=== PATIENT | female | born 1950 | race Caucasian/White ===

== ENCOUNTER 2024-02-14 16:10 | Inpatient (IN) ==
[2024-02-14] MEDS: ACETAMINOPHEN 1,000 MG/100 ML BAG IV ONE ×2 (17:28→19:51)
[2024-02-14] MEDS: 0.9 % SODIUM CHLORIDE 1,000 ML IV ONE (17:28)
[2024-02-14 17:42] LABS: Basophils # (Auto) 0.07 K/mcL (0.00-0.30); Basophils % (Auto) 0.4 % (0.0-2.0); Eosinophils # (Auto) 0.29 K/mcL (0.00-0.70); Eosinophils % (Auto) 1.9 % (0.0-7.0); Hematocrit 43.8 % (34.1-44.9); Hemoglobin 14.5 g/dL (11.2-15.7); Lymphocytes # (Auto) 2.71 K/mcL (1.50-4.80); Lymphocytes % (Auto) 17.3 % (15.5-49.0); Mean Corpuscular HGB Conc 33.1 g/dL (31.0-36.0); Mean Platelet Volume 10.4 fL (8.8-12.5); Monocytes # (Auto) 1.09 K/mcL (0.10-0.90); Neutrophils % (Auto) 72.7 % (38.0-78.0); Platelet Count 304 K/mcL (140-440); RBC 4.92 M/mcL (3.59-5.38); Red Cell Distribution Width 14.6 % (11.5-14.5); WBC 15.6 K/mcL (4.5-11.0)
[2024-02-14 18:03] LABS: ALT/SGPT 9 U/L (<40); AST/SGOT 25 U/L (<32); Albumin 4.1 gm/dL (3.2-5.2); Albumin/Globulin Ratio 1.5 (1.0-2.3); Alkaline Phosphatase 72 U/L (39-117); Bilirubin,Total 0.5 mg/dL (0.1-1.0); Blood Urea Nitrogen 18 mg/dL (8-23); Calcium 9.3 mg/dL (8.6-10.4); Carbon Dioxide 26 mmol/L (22-30); Chloride 105 mmol/L (96-108); Globulin 2.7 gm/dL (2.2-3.7); Glomerular Filtration Rate 87; Glucose 105 mg/dL (70-105)
[2024-02-14] MEDS: CEFEPIME 2 GM VIAL IV ONE (18:49)
[2024-02-14 19:14] LABS: Appearance,Urine Clear (Clear); Bacteria,Urine 0 /hpf (0); Bilirubin,Urine Negative (Negative); Color,Urine Yellow; Culture Indicated,Urine No; Glucose,Urine (UA) Negative (Negative); Ketones,Urine Negative (Negative); Leukocyte Esterase,Urine Trace /uL (Negative); Nitrate,Urine Negative (Negative); PH,Urine 5.5 (5.0-9.0); Protein,Urine Negative (Negative); Specific Gravity,Urine 1.015 (1.000-1.035); Urine Blood Negative ery/mcL (Negative); Urine RBC 0 /hpf (0-3); Urine Squamous Epithelial Cell 0 /hpf (0-4); Urine WBC 2 /hpf (0-4); Urobilinogen,Urine Normal
[2024-02-14] MEDS: HYDROmorphone 0.5 MG/0.5 ML SYRINGE IV ONE (19:56)
[2024-02-14] MEDS: ONDANSETRON 4 MG/2 ML VIAL IV ONE (19:57)
[2024-02-14] MEDS ORDERED: IOPAMIDOL 100 ML BOTTLE IV ONE (20:51)
[2024-02-14] MEDS: CEFEPIME 2 GM VIAL IV SCH (21:31)
[2024-02-14] MEDS ORDERED: CYCLOBENZAPRINE (PP) 10 MG TABLET PO PRN (21:37)
[2024-02-14] MEDS: 0.9 % SODIUM CHLORIDE 10 ML SYRINGE IV SCH (21:38)
[2024-02-14] MEDS: SENNOSIDES 1 TABLET PO SCH (21:38)
[2024-02-14] MEDS: DOCUSATE SODIUM 100 MG CAPSULE PO SCH (21:38)
[2024-02-14] MEDS: 0.9 % SODIUM CHLORIDE 1,000 ML IV SCH (21:38)
[2024-02-14] MEDS ORDERED: CYCLOBENZAPRINE 10 MG TABLET PO PRN (23:39)
[2024-02-15] MEDS: ONDANSETRON 4 MG/2 ML VIAL IV PRN (00:17)
[2024-02-15] MEDS: CEFEPIME 2 GM VIAL IV SCH (00:29)
[2024-02-15] MEDS: METOCLOPRAMIDE 10 MG/2 ML VIAL IV SCH (00:29)
[2024-02-15] MEDS: HYDROmorphone 0.5 MG/0.5 ML SYRINGE IV PRN (00:48)
[2024-02-15 06:05] LABS: Basophils # (Auto) 0.04 K/mcL (0.00-0.30); Basophils % (Auto) 0.2 % (0.0-2.0); Eosinophils # (Auto) 0.03 K/mcL (0.00-0.70); Eosinophils % (Auto) 0.2 % (0.0-7.0); Hematocrit 43.1 % (34.1-44.9); Hemoglobin 14.2 g/dL (11.2-15.7); Lymphocytes # (Auto) 1.44 K/mcL (1.50-4.80); Mean Cell Volume 89.6 fL (80.0-100.0); Mean Corpuscular HGB Conc 32.9 g/dL (31.0-36.0); Mean Platelet Volume 11.1 fL (8.8-12.5); Monocytes # (Auto) 1.02 K/mcL (0.10-0.90); Monocytes % (Auto) 6.3 % (1.0-12.0); Neutrophils % (Auto) 83.7 % (38.0-78.0); Platelet Count 278 K/mcL (140-440); RBC 4.81 M/mcL (3.59-5.38); Red Cell Distribution Width 14.8 % (11.5-14.5); WBC 16.1 K/mcL (4.5-11.0)
[2024-02-15 06:34] LABS: ALT/SGPT 15 U/L (<40); AST/SGOT 30 U/L (<32); Albumin 3.8 gm/dL (3.2-5.2); Albumin/Globulin Ratio 1.5 (1.0-2.3); Alkaline Phosphatase 67 U/L (39-117); Bilirubin,Direct 0.2 mg/dL (<0.3); Bilirubin,Total 0.7 mg/dL (0.1-1.0); Blood Urea Nitrogen 15 mg/dL (8-23); Calcium 9.2 mg/dL (8.6-10.4); Carbon Dioxide 27 mmol/L (22-30); Chloride 107 mmol/L (96-108); Globulin 2.5 gm/dL (2.2-3.7); Glomerular Filtration Rate 87; Glucose 139 mg/dL (70-105); Lactate Dehydrogenase 184 U/L (135-225); Triglycerides 42 mg/dL (<150); Uric Acid 5.9 mg/dL (2.5-8.0)
[2024-02-15] MEDS: PANTOPRAZOLE 40 MG TABLET PO SCH (07:28)
[2024-02-15] MEDS: ATENOLOL 25 MG TABLET PO SCH (08:53)
[2024-02-15] MEDS: BACLOFEN 5 MG PO SCH (08:56)
[2024-02-15] MEDS: BACLOFEN 10 MG TABLET PO SCH (14:20)
[2024-02-15] MEDS: cefTRIAXone 2 GM in DEXTROSE 5% IN WATER 50 ML IV SCH (17:05)
[2024-02-15] MEDS: cefTRIAXone 2 GM VIAL ONE (17:05)
[2024-02-15] MEDS: methylPREDNISolone SOD SUCC 125 MG/2 ML VIAL IV SCH (17:43)
[2024-02-15] MEDS: metroNIDAZOLE 500 MG/100 ML BAG IV SCH (17:44)
[2024-02-16] MEDS: cefTRIAXone 2 GM VIAL ONE (09:01)
[2024-02-16 11:13] LABS: Basophils # (Auto) 0.01 K/mcL (0.00-0.30); Basophils % (Auto) 0.1 % (0.0-2.0); Eosinophils # (Auto) 0 K/mcL (0.00-0.70); Eosinophils % (Auto) 0 % (0.0-7.0); Hematocrit 38.3 % (34.1-44.9); Hemoglobin 12.6 g/dL (11.2-15.7); Lymphocytes # (Auto) 0.86 K/mcL (1.50-4.80); Mean Cell Volume 89.5 fL (80.0-100.0); Mean Corpuscular HGB Conc 32.9 g/dL (31.0-36.0); Mean Platelet Volume 10.7 fL (8.8-12.5); Monocytes # (Auto) 0.19 K/mcL (0.10-0.90); Monocytes % (Auto) 1.8 % (1.0-12.0); Neutrophils % (Auto) 89.1 % (38.0-78.0); Platelet Count 252 K/mcL (140-440); RBC 4.28 M/mcL (3.59-5.38); Red Cell Distribution Width 14.6 % (11.5-14.5); WBC 10.8 K/mcL (4.5-11.0)
[2024-02-18 06:01] LABS: ALT/SGPT 16 U/L (<40); AST/SGOT 24 U/L (<32); Albumin 3.3 gm/dL (3.2-5.2); Albumin/Globulin Ratio 1.8 (1.0-2.3); Alkaline Phosphatase 51 U/L (39-117); Bilirubin,Direct < 0.2 mg/dL (0-0.3); Bilirubin,Total 0.3 mg/dL (0.1-1.0); Blood Urea Nitrogen 21 mg/dL (8-23); Calcium 8.2 mg/dL (8.6-10.4); Carbon Dioxide 22 mmol/L (22-30); Chloride 109 mmol/L (96-108); Globulin 1.8 gm/dL (2.2-3.7); Glomerular Filtration Rate 91; Glucose 134 mg/dL (70-105); Lactate Dehydrogenase 148 U/L (135-225); Phosphorous 2.7 mg/dL (2.5-4.5); Triglycerides 41 mg/dL (<150); Uric Acid 5.5 mg/dL (2.5-8.0)
[2024-02-18 06:22] LABS: Basophils # (Auto) 0.02 K/mcL (0.00-0.30); Basophils % (Auto) 0.2 % (0.0-2.0); Eosinophils # (Auto) 0 K/mcL (0.00-0.70); Eosinophils % (Auto) 0 % (0.0-7.0); Hematocrit 36.8 % (34.1-44.9); Hemoglobin 12.2 g/dL (11.2-15.7); Lymphocytes # (Auto) 0.92 K/mcL (1.50-4.80); Lymphocytes % (Auto) 7.2 % (15.5-49.0); Mean Cell Volume 89.8 fL (80.0-100.0); Mean Corpuscular HGB Conc 33.2 g/dL (31.0-36.0); Mean Platelet Volume 11.8 fL (8.8-12.5); Monocytes # (Auto) 0.61 K/mcL (0.10-0.90); Monocytes % (Auto) 4.8 % (1.0-12.0); Neutrophils % (Auto) 86.6 % (38.0-78.0); Platelet Count 247 K/mcL (140-440); Red Cell Distribution Width 14.9 % (11.5-14.5); WBC 12.8 K/mcL (4.5-11.0)
== END 2024-02-18 14:40 | disposition home or self-care (01) | DRG 386 ==
LOC: MEDSUR 16:10 → ED 16:10 → MEDSUR 20:58
PROVIDERS: ADMIT Family Medicine Adult Medicine; ATTEND Family Medicine Adult Medicine